=== PATIENT | male | born 1995 | race Two or more races ===

== ENCOUNTER 2021-03-19 08:39 | Emergency (ER) | payer SELFPAY ==
[~2021-03-19] VITALS: Ht 167.6 cm; Wt 81.6 kg
[2021-03-19 09:15] VITALS: BP 132/87
== END 2021-03-19 09:38 | disposition home or self-care (01) ==
LOC: ER 08:39
DX: E86.0 Dehydration (principal); F41.9 Anxiety disorder, unspecified
CPT/HCPCS: 93005